=== PATIENT | male | born 1955 | race Hispanic/Latino ===

== ENCOUNTER → 2023-09-04 | Day surgery (SDC) | payer OTHER ==
[2023-08-29 09:29] LABS: BASOPHILS % 0.2 % (0.0-1.0); EOSINOPHILS # (AUTO) 0.1 (0.0-0.4); EOSINOPHILS % 0.8 % (0.0-6.0); HEMATOCRIT 49.6 % (38.2-49.6); HEMOGLOBIN 15.8 g/dL (14.0-18.0); LYMPHOCYTES # (AUTO) 1.4 (1.0-3.2); LYMPHOCYTES % 10.8 % (18.0-39.1); MEAN CORPUSCULAR HEMOGLOBIN 29.7 pg (28-32); MEAN CORPUSCULAR HGB CONC 31.9 g/dL (31-35); MEAN CORPUSCULAR VOLUME 93.2 fL (81-99); MONOCYTES # (AUTO) 0.8 (0.2-0.8); MONOCYTES % 5.8 % (4.4-11.3); NEUTROPHILS # (AUTO) 10.7 (2.1-6.9); NEUTROPHILS % 81.8 % (38.7-80.0); PLATELET COUNT 215 x10e3/uL (140-360); RED BLOOD COUNT 5.32 x10e6/uL (4.3-5.7); RED CELL DISTRIBUTION WIDTH 14.2 % (11.7-14.4); WHITE BLOOD COUNT 13.04 x10e3/uL (4.8-10.8)
[2023-08-29 10:16] LABS: ANION GAP 13.4 mmol/L (8-16); CALCIUM 10.4 mg/dL (8.4-10.2); CREATININE, SERUM 0.89 mg/dL (0.72-1.25); POTASSIUM 4.4 mmol/L (3.5-5.1)
[~2023-09-04] MED LIST: ALLOPURINOL100 MG PO; AMLODIPINE BESYL5 MG PO; BALANCED SALT SOLN (OPTH) 15 ML BTL IO ONE; BUPIVACAINE HC 0.75% PF 10ML VIAL INJ ONE; CYCLOPENTOLATE HCL 1% OPTH SOLN 2ML BTL ONE; DICLOFENAC35 MG PO; EPINEPHRINE HCL 1:1000 1ML 1 MG/ML AMP ONE; LACTATED RINGER'S 1,000 ML ONE; LIDOCAINE 2% /EPINEPHRINE 20 ML SDV INJ ONE; LIDOCAINE HCL-PF 4% 40 MG/1 ML 5ML AMP ONE; LOSARTAN POTAS100 MG PO; NEOMYCIN/POLYMYXIN/DEX (OPTH) 3.5 GM TUBE ONE; PHENYLEPHRINE HCL 2 ML DROPS ONE; POVIDONE IODINE 5% (OPTH) 30 ML BTL ONE; PROPOFOL IV EMULSION 10 MG/ML 20 ML VIAL ONE; VITAMIN D3125 MCG PO
[2023-09-04 11:25] VITALS: TEMP 97.3
[2023-09-04 11:45] VITALS: BP 122/80; PULSE 72; RESP 18; O2SAT 95
== END | disposition home or self-care (01) ==
LOC: OR 07:21
PROVIDERS: ATTEND Ophthalmology
DX: H25.11 Age-related nuclear cataract, right eye (principal); I10 Essential (primary) hypertension; N40.0 Benign prostatic hyperplasia without lower urinary tract symptoms; E78.5 Hyperlipidemia, unspecified; M06.9 Rheumatoid arthritis, unspecified; M10.9 Gout, unspecified; M19.91 Primary osteoarthritis, unspecified site; Z87.891 Personal history of nicotine dependence; Z01.810 Encounter for preprocedural cardiovascular examination; Z01.812 Encounter for preprocedural laboratory examination; Z79.899 Other long term (current) drug therapy
CPT/HCPCS: 36415; 66984; 80048; 85025; 93005; J0171; J2001; J2704; J7121; V2632